=== PATIENT | male | born 1985 | race Hispanic/Latino ===

== ENCOUNTER 2017-09-29 14:11 | Emergency (ER) | payer MEDICARE ==
[2017-09-29] MEDS ORDERED: NACL 0.9% 500 ML 500 ML IV ONE (14:42)
[2017-09-29] MEDS ORDERED: TYLENOL PO ONE (14:51)
[2017-09-29] MEDS ORDERED: TYLENOL ONE (14:51)
[2017-09-29 15:06] LABS: Bilirubin,Urine NEG (Negative); Blood,Urine NEG (Negative); Ketones,Urine NEG (Negative); Leukocyte Esterase,Urine NEG (Negative); Nitrite,Urine NEG (Negative); Protein,Urine <15 mg/dL mg/dL (Negative)
[2017-09-29 15:11] LABS: Hematocrit 31.5 % (35.5-45.6); Hemoglobin 10.1 gm/dl (11.8-15.2); Mean Corpuscular HGB Conc 32 % (32-34); Mean Corpuscular Hemoglobin 27 pg (28-32); Mean Corpuscular Volume 82 fl (84-94); Platelet Count 301 K/mm3 (140-440); Red Blood Count 3.82 M/mm3 (3.65-5.03); Red Cell Distribution Width 19.3 % (13.2-15.2); White Blood Count 4.6 K/mm3 (4.5-11.0)
[2017-09-29 15:21] LABS: INR 0.98 (0.87-1.13)
[2017-09-29 15:43] LABS: Alanine Aminotransferase 39 units/L (7-56); Albumin 4.4 g/dL (3.9-5); Alkaline Phosphatase 102 units/L (35-129); Anion Gap 20 mmol/L; BUN/Creatinine Ratio 20; Blood Urea Nitrogen 14 mg/dL (9-20); Calcium 8.6 mg/dL (8.4-10.2); Carbon Dioxide 25 mmol/L (22-30); Chloride 100.3 mmol/L (98-107); Glucose 63 mg/dL (75-100); Potassium 4.1 mmol/L (3.6-5.0); Sodium 141 mmol/L (137-145); Total Protein 6.6 g/dL (6.3-8.2)
--- NOTE | 2017-09-29 15:44 | XRay Report ---
CHEST 2 VIEWS INDICATION: Shortness of breath. COMPARISON: None similar at this institution. FINDINGS: PA and lateral chest radiographs demonstrate normal cardiomediastinal silhouette. Clear lungs. Intact bones. CONCLUSION: No acute disease in the chest. Thank you for the opportunity to participate in this patient's care.
[2017-09-29 15:52] LABS: Basophils % (Manual) 0 % (0.0-1.8); Blastocytes % (Manual) 0 %
[2017-09-29 15:53] LABS: Anisocytosis 1+; Large Platelets Rare; Microcytosis Rare
[2017-09-29 15:54] LABS: Diff Status Complete; Elliptocytes Few; Poikilocytosis Few; Schistocytes Rare
[2017-09-29] MEDS ORDERED: CLEOCIN 600 MG/50 mL 600 MG/50 ML BAG IV ONE (20:59)
--- NOTE | 2017-09-29 21:33 | Emergency Department Report ---
ED Fever HPI - General Chief Complaint: Fever Stated Complaint: MRSA/LEG PAIN Time Seen by Provider: 09/29/17 20:52 Source: patient - History of Present Illness Initial Comments: 32 yo male who comes in today due to cellulitis of bilateral lower extremities. He states that it has been present times greater than six months. Admits to being treated in the past for. Admits to a hx of hiv, meth use, and mrsa. Temperature of 101.6 on intake. Temperature 98.2 now. Timing/Duration: other (months) Fever Severity/Quality: other (101.6. ) Fever Therapy [employer]ATOR: other (none) Associated Symptoms: other (cellulitis-bilateral lower extremities ) ED Review of Systems ROS: Stated complaint: MRSA/LEG PAIN Other details as noted in HPI Constitutional: fever Eyes: denies: eye pain, eye discharge, vision change ENT: denies: ear pain, throat pain Respiratory: denies: cough, shortness of breath, wheezing Cardiovascular: denies: chest pain, palpitations Endocrine: no symptoms reported Gastrointestinal: denies: abdominal pain, nausea, diarrhea Genitourinary: denies: urgency, dysuria Musculoskeletal: denies: back pain, joint swelling, arthralgia Skin: other (cellulitis-bilateral lower extremities ) Neurological: denies: headache, weakness, paresthesias Psychiatric: other (somnolent) Hematological/Lymphatic: denies: easy bleeding, easy bruising ED Past Medical Hx - Past Medical History Previous Medical History?: Yes Hx HIV: Yes Additional medical history: meth user - Surgical History Past Surgical History?: Yes Additional Surgical History: MRSA SURGERY - Social History Smoking Status: Current Every Day Smoker Substance Use Type: None, Cocaine, Methamphetamines - Medications Home Medications: Home Medications Medication Instructions Recorded Confirmed Last Taken Type Clindamycin [Clindamycin CAP] 300 mg PO Q8HR #30 capsule 09/29/17 Unknown Rx ED Physical Exam - General Limitations: No Limitations General appearance: other (somnolent) - Head Head exam: Present: atraumatic, normocephalic - Eye Eye exam: Present: normal appearance - ENT ENT exam: Present: mucous membranes moist - Neck Neck exam: Present: normal inspection - Respiratory Respiratory exam: Present: normal lung sounds bilaterally. Absent: respiratory distress - Cardiovascular Cardiovascular Exam: Present: tachycardia - Extremities Exam Extremities exam: Present: other (cellulitis-bilateral lower extremities, scratches diffusely over the lower extremities ) - Back Exam Back exam: Present: normal inspection - Neurological Exam Neurological exam: Present: other (somnolent ) - Psychiatric Psychiatric exam: Present: other (somnolent ) - Skin Skin exam: Present: other (scratches diffusely over bilateral lower extremities) ED Course Vital Signs 09/29/17 09/29/17 09/29/17 14:36 15:53 18:46 Temperature 101.6 F H 100.2 F H 98 F Pulse Rate 108 H 107 H 91 H Respiratory 20 20 20 Rate Blood Pressure 106/65 Blood Pressure 161/140 105/62 [Left] O2 Sat by Pulse 99 Oximetry 09/29/17 09/29/17 19:17 19:24 Temperature 98.2 F Pulse Rate 78 Respiratory 16 16 Rate Blood Pressure Blood Pressure 102/64 [Left] O2 Sat by Pulse 100 100 Oximetry - Reevaluation(s) Reevaluation #1: 09/29/17 21:38 Suspect cellulitis of bilateral lower extremities. Will draw blood cultures and start clindamycin. Home with po clindamycin. ED Medical Decision Making - Lab Data Result diagrams: 09/29/17 14:53 09/29/17 14:53 - EKG Data EKG shows normal: sinus rhythm Rate: normal - EKG Data When compared to previous EKG there are: previous EKG unavailable Interpretation: normal EKG - Radiology Data Radiology results: report reviewed No acute pathology. - Medical Decision Making Cellulitis-bilateral lower extremities Hx of meth use Hx of hiv Hx of staph infections - Differential Diagnosis Cellulitis-bilateral lower extremities, hx of staph infections, fever Critical care attestation.: If time is entered above; I have spent that time in minutes in the direct care of this critically ill patient, excluding procedure time. ED Disposition Clinical Impression: Cellulitis and abscess of left leg, Cellulitis, History of staph infection Disposition: DC-01 TO HOME OR SELFCARE Is pt being admited?: No Does the pt Need Aspirin: No Condition: Stable Instructions: Cellulitis (ED) Additional Instructions: Take medicines as prescribed. Please fill the medication and take to completion. I also recommend using an antibacterial soap when bathing at all times. Prescriptions: Clindamycin [Clindamycin CAP] 300 mg PO Q8HR #30 capsule Referrals: PRIMARY CARE, [Primary Care Provider] - 3-5 Days Time of Disposition: 21:44
[2017-09-29] MEDS ORDERED: NACL 0.9% 1000 ML 1,000 ML IV ONE (21:41)
[2017-09-29 21:46] LABS: Urine Drugs of Abuse Note Disclamer
[2017-09-29 22:09] VITALS: BP 111/58
== END 2017-09-30 01:30 | disposition home or self-care (01) ==
LOC: ED 14:11
DX: L02.416 Cutaneous abscess of left lower limb (principal); L02.415 Cutaneous abscess of right lower limb; Z21 Asymptomatic human immunodeficiency virus [HIV] infection status; F17.200 Nicotine dependence, unspecified, uncomplicated; F14.10 Cocaine abuse, uncomplicated; F19.10 Other psychoactive substance abuse, uncomplicated; Z88.2 Allergy status to sulfonamides; Z88.8 Allergy status to other drugs, medicaments and biological substances
CPT/HCPCS: 36415; 71020; 80053; 80307; 81001; 82140; 82805; 85007; 85025; 85610; 87040; 87086; 93005; 93010; 96361; 96365; 99284; J7030